=== PATIENT | male | born 1955 | race Caucasian/White ===

== ENCOUNTER → 2024-08-21 12:14 | Outpatient (CLI) | payer OTHER, SELFPAY ==
--- NOTE | 2024-08-21 12:18 | EKG_ITS ---
[facility] [address] [place] [address] Test Date: 2024-08-21 Pat Name: Paul Call Department: Room: Gender: Male Clinical Laboratory Director: : [id number] Requested By: Order Number: [id number] Reading MD: Ricardo Saunders Measurements Intervals [place] Rate: 50 P: 72 OR: 184 QRS: -82 QRSD: 146 T: 96 QT: 476 QTc: 433 Interpretive Statements Sinus bradycardia Left axis deviation Left bundle branch block Electronically Signed On 08-21-2024 17:28:41 PDT by Ricardo Saunders
== END ==
LOC: RESP 12:17
PROVIDERS: Referring Provider Chiropractor; Visit Provider Chiropractor
DX: I10 Essential (primary) hypertension (principal)
CPT/HCPCS: 93005